=== PATIENT | female | born 1990 | race Caucasian/White ===

== ENCOUNTER 2017-02-06 18:15 | Emergency (ER) | payer OTHER ==
[2017-02-06 18:40] VITALS: BP 142/66; PULSE 95; RESP 18; TEMP 98; O2SAT 97
--- NOTE | 2017-02-06 19:38 | UCPHY ---
H & P Time Seen by Provider: 02/06/17 19:27 Patient Type: New HPI/ROS: HPI Lower abdominal pain. 26-year-old female by private vehicle. She complains of intermittent lower abdominal discomfort which she describes as cramping aching starting last Tuesday. She reports it was intermittent in nature but since last night it has been more constant. Her last menstrual period was 2 months ago. She states she had 4 bowel movements today. These were normal. No bloody or melenic stool. Last meal was at lunch earlier today at about 1:30 p.m.. She has not had any nausea or vomiting. She denies fever. No urinary complaints. She has not had any diarrhea. ROS: Constitutional: No fever, no chills. No weakness. Eyes: No discharge. No changes in vision. ENT: No sore throat. No nasal congestion or rhinorrhea. Respiratory: No cough. No shortness of breath. Cardiac: No chest pain, no palpitations. Gastrointestinal: As above. Genitourinary: No hematuria. No dysuria or increased frequency with urination. Musculoskeletal: No back pain. No neck pain. No myalgias or arthralgias. Skin: No rashes. Neurological: No headache. No focal weakness or altered sensation. Past medical history: No significant past medical history. Social history: Here by herself. Nonsmoker. Physical Exam: General Appearance: Alert, no distress. This patient is responding to questions appropriately and in full sentences. This patient appears well- hydrated and well-nourished. Eyes: Pupils equal and round no pallor or injection. No lid edema, erythema or injection. Respiratory: There are no retractions, lungs are clear to auscultation with good air movement bilaterally. Cardiovascular: Regular rate and rhythm. No murmur. Gastrointestinal: Abdomen is soft with very mild if any tenderness on palpation in the left lower quadrant, no masses, bowel sounds normal. No focal tenderness at McBurney's point. No Ross sign. Neurological: Motor sensory function is grossly intact. Cranial nerves are normal. Gait is normal. Skin: Warm and dry, no rashes. Musculoskeletal: Neck is supple and nontender. Extremities are symmetrical. All joints range without pain or impingement. Psychiatric: No agitation. No depression. Database: EKG: Imaging: Procedures: Emergency department course: Vital signs reviewed and are unremarkable. Patient appears comfortable. Her abdominal exam did not demonstrate significant tenderness. Urine specimen was provided for urinalysis and urine . Do not feel she needs CT imaging at this time. I discussed ultrasound imaging for possible left ovarian cyst we do not have ultrasound imaging at this time at urgent care. 7:35 p.m., patient informed that we do not have ultrasound at this Urgent Care at this time. 8:25 p.m., patient re-evaluated. Results of urinalysis and urine discussed. Repeat abdominal exam she is soft, nontender nondistended. I advised that she go to the emergency department for further evaluation of her abdominal pain. She stated that she would do this. She feels comfortable going home at this time. Follow-up and return to emergency department precautions were reviewed with her. All of her questions were answered. She was discharged in good condition. Differential Diagnosis: The differential diagnosis on this patient includes but is not limited to enteritis, colitis, urinary tract infection, ovarian cyst. Appendicitis, cholecystitis, diverticulitis, bowel obstruction/volvulus, other surgical etiology unlikely. This represents a partial list of diagnoses considered. These considerations are based on history, physical exam, past history, reassessment and diagnostic testing. Smoking Status: Never smoked Constitutional: Initial Vital Signs Temperature (C) 36.6 C 02/06/17 18:38 Heart Rate 95 02/06/17 18:38 Respiratory Rate 18 02/06/17 18:38 Blood Pressure 142/66 H 02/06/17 18:38 O2 Sat (%) 97 02/06/17 18:38 O2 Delivery Mode Room Air Allergies/Adverse Reactions: amoxicillin Allergy (Verified 02/06/17 18:37) Home Medications: Medication Instructions Recorded Bc Pills 02/06/17 Departure - Departure Disposition: Home, Routine, Self-Care Clinical Impression: Abdominal pain Condition: Good Instructions: Acute Abdominal Pain (ED) Additional Instructions: Read and follow provided instructions. Go to the emergency department for worsening abdominal pain, fever, vomiting or other serious concerns. Ibuprofen dosin mg every 6 hours with meals for the next 3 days only. Referrals: Aida Chavez MD [Primary Care Provider] - As per Instructions - PQRS PQRS Measurement: Not applicable.
[2017-02-06 19:42] LABS: COLOR YELLOW; LEUKOCYTE ESTERASE,URINE NEGATIVE (NEGATIVE); NITRITE,URINE NEGATIVE (NEGATIVE)
[2017-02-06 20:11] LABS: BACTERIA 2+ /hpf (NONE SEEN); MUCUS 2+ /lpf (NONE-1+); RBC,URINE 0-1 /hpf (0-3)
== END 2017-02-06 20:43 | disposition home or self-care (01) ==
LOC: CED 18:15
DX: R10.30 Lower abdominal pain, unspecified (principal)
CPT/HCPCS: 81003-PO; 81015-PO; 81025-PO; 99203-PO; G0463-PO